=== PATIENT | female | born 1960 | race Caucasian/White ===

== ENCOUNTER → 2019-10-30 | Outpatient (CLI) | payer OTHER ==
--- NOTE | 2019-11-01 09:30 | RAD ---
BILATERAL SCREENING MAMMOGRAM History: Routine screening. Comparison: 09/16/2013. Technique: Routine bilateral digital mammogram views were obtained. Findings: Breast Tissue Density B : There are scattered areas of fibroglandular density. Multiple right inner breast numerous masses are present and stable. These are smoothly marginated measuring up to 1.1 cm diameter most measuring less than 1 cm diameter. Stable asymmetry involving the left outer CC image anteriorly is stable. At the posterior aspect of the left outer breast, there is asymmetry noted. There appear to be 2 foci of asymmetry in the esophagus are 5.7 cm from the nipple. A smaller asymmetry at the left upper anterior breast On the right at the inferior anterior aspect 0.8 cm from the nipple there is a 0.9 cm x 0.7 cm ovoid mass which is new compared to previous exam. It is smoothly marginated without suspicious characteristics.. No suspicious calcifications or distortion. IMPRESSION: Left breast asymmetries. Spot compression imaging of the left breast asymmetries is recommended. Right breast subareolar mass. Ultrasound at the 3:00 periareolar region recommended. BI-RADS Category 0: Incomplete: Need additional imaging evaluation. The images were reviewed with computer aided detection. Patient information is entered into the reminder system with a target due date for the next screening mammogram. Mammography is the most sensitive method for finding small breast cancers, but it does not detect them all and is not a substitute for careful clinical examination. A negative mammogram does not negate a clinically suspicious finding and should not result in delay in biopsying a clinically suspicious abnormality. "Our facility is accredited by the [employer] Mammography [employer]." Electronically signed by: Juan Pulido MD (11/01/2019 9:27 AM) [email or web address]
== END ==
LOC: MAMMO 12:11
PROVIDERS: ATTEND Internal Medicine
DX: Z12.31 Encounter for screening mammogram for malignant neoplasm of breast (principal); N63.41 Unspecified lump in right breast, subareolar
CPT/HCPCS: 77067

== ENCOUNTER → 2019-11-08 | Outpatient (CLI) | payer OTHER ==
--- NOTE | 2019-11-08 17:28 | RAD ---
DATE: 11/08/2019 2:17 PM EXAM: BREAST ultrasound RIGHT, DIGITAL DIAGNOSTIC mammogram LT HISTORY: Screening recall for bilateral breast asymmetries COMPARISON: Bilateral mammogram of 09/16/2013, 10/30/2019 Left CC spot compression view was obtained. Targeted ultrasound of the periareolar right breast was performed in the area of mammographic interest. FINDINGS: Breast Density: SCATTERED The breast parenchyma shows scattered fibroglandular densities. Breast parenchyma level B No persistent mammographic abnormality on additional mammographic views of the left breast. Targeted ultrasound of the right breast showed benign subareolar duct ectasia and sonographically benign cysts largest measuring 1 cm at the 3:00 position 1 cm from the nipple. This likely explains the mammographic finding recalled from screening.. No solid mass or sonographic findings. IMPRESSION: Benign findings on bilateral diagnostic breast imaging. No evidence of malignancy. BI-RADS CATEGORY: 2 BENIGN FINDING(S) RECOMMENDED FOLLOW-UP: 12M 12 MONTH FOLLOW-UP Annual screening mammography is recommended, unless clinically indicated sooner based on symptoms or change in physical exam. PQRS compliance statement: Patient information was entered into a reminder system with a target due date for the next mammogram. Mammography is a sensitive method for finding small breast cancers, but it does not detect them all and is not a substitute for careful clinical examination. A negative mammogram does not negate a clinically suspicious finding and should not result in delay in biopsying a clinically suspicious abnormality. "Our facility is accredited by the [employer]ammography [employer]."
== END | disposition home or self-care (01) ==
LOC: MAMMO 13:27
PROVIDERS: ATTEND Internal Medicine
DX: N60.02 Solitary cyst of left breast (principal); N60.41 Mammary duct ectasia of right breast
CPT/HCPCS: 76641; 77065

== ENCOUNTER → 2020-11-04 | Day surgery (SDC) | payer OTHER ==
[~2020-11-04] MED LIST: BUPIVACAINE MPF 0.25% 10 ML VIAL. ONE; DEXAMETHASONE SOD PHOS 10 MG/ML VIAL. ONE; IOHEXOL 300 MG/ML 50 ML VIAL. ONE; LIDOCAINE 1% PF 30 ML VIAL. ONE
[2020-11-04 10:39] VITALS: BP 134/86
== END | disposition home or self-care (01) ==
LOC: SURG 09:42
PROVIDERS: ATTEND Anesthesiology
DX: M54.16 Radiculopathy, lumbar region (principal); I10 Essential (primary) hypertension; M51.36 Other intervertebral disc degeneration, lumbar region; Z88.5 Allergy status to narcotic agent; Z88.0 Allergy status to penicillin
CPT/HCPCS: 64483; 64484; J1100; J3490; Q9967

== ENCOUNTER → 2020-12-16 | Day surgery (SDC) | payer OTHER ==
[~2020-12-16] MED LIST changes: +0.9 % SODIUM CHLORIDE 10 ML VIAL. ONE
[2020-12-16 13:30] VITALS: BP 131/77
== END | disposition home or self-care (01) ==
LOC: SURG 11:53
PROVIDERS: ATTEND Anesthesiology
DX: M54.16 Radiculopathy, lumbar region (principal); I10 Essential (primary) hypertension; M51.36 Other intervertebral disc degeneration, lumbar region; Z98.890 Other specified postprocedural states; Z88.0 Allergy status to penicillin; Z88.5 Allergy status to narcotic agent; Z79.899 Other long term (current) drug therapy
CPT/HCPCS: 64483; 64484; J1100; J3490; Q9967